=== PATIENT | female | born 1955 | race Caucasian/White ===

== ENCOUNTER 2022-01-19 10:04 | Outpatient (CLI) | payer MEDICARE, OTHER | END 2022-01-19 10:05 | disposition home or self-care (01) | LOC: CSHMRI 10:04 | PROVIDERS: ATTEND Podiatrist Foot & Ankle Surgery | DX: M76.71 Peroneal tendinitis, right leg (principal); M84.474K Pathological fracture, right foot, subsequent encounter for fracture with nonunion; M19.071 Primary osteoarthritis, right ankle and foot; M79.4 Hypertrophy of (infrapatellar) fat pad ==

== ENCOUNTER → 2025-01-15 | Outpatient (CLI) | payer MEDICARE, OTHER | LOC: CSHWCC 09:00 | PROVIDERS: ATTEND Nurse Practitioner Family | DX: I87.331 Chronic venous hypertension (idiopathic) with ulcer and inflammation of right lower extremity (principal); L97.511 Non-pressure chronic ulcer of other part of right foot limited to breakdown of skin; T81.31XA Disruption of external operation (surgical) wound, not elsewhere classified, initial encounter; M06.9 Rheumatoid arthritis, unspecified; L08.9 Local infection of the skin and subcutaneous tissue, unspecified | CPT/HCPCS: 11042; 97605; G0463; 99213 ==

== ENCOUNTER 2025-01-24 09:15 | Outpatient (CLI) | payer MEDICARE, OTHER | END 2025-01-24 09:16 | disposition home or self-care (01) | LOC: CSHWCC 09:15 | PROVIDERS: ATTEND Nurse Practitioner Family | DX: T81.31XD Disruption of external operation (surgical) wound, not elsewhere classified, subsequent encounter (principal); I87.331 Chronic venous hypertension (idiopathic) with ulcer and inflammation of right lower extremity; L97.511 Non-pressure chronic ulcer of other part of right foot limited to breakdown of skin; M06.9 Rheumatoid arthritis, unspecified; L08.9 Local infection of the skin and subcutaneous tissue, unspecified | CPT/HCPCS: 97607 ==

== ENCOUNTER 2025-01-29 08:54 | Outpatient (CLI) | payer MEDICARE, OTHER | END 2025-01-29 08:55 | disposition home or self-care (01) | LOC: CSHWCC 08:54 | PROVIDERS: ATTEND Nurse Practitioner Family | DX: T81.31XD Disruption of external operation (surgical) wound, not elsewhere classified, subsequent encounter (principal); I87.331 Chronic venous hypertension (idiopathic) with ulcer and inflammation of right lower extremity; L97.511 Non-pressure chronic ulcer of other part of right foot limited to breakdown of skin; L08.9 Local infection of the skin and subcutaneous tissue, unspecified; M06.9 Rheumatoid arthritis, unspecified | CPT/HCPCS: 11042; 97605 ==

== ENCOUNTER 2025-01-31 09:19 | Outpatient (CLI) | payer MEDICARE, OTHER | END 2025-01-31 09:20 | disposition home or self-care (01) | LOC: CSHWCC 09:19 | PROVIDERS: ATTEND Nurse Practitioner Family | DX: T81.31XD Disruption of external operation (surgical) wound, not elsewhere classified, subsequent encounter (principal); I87.331 Chronic venous hypertension (idiopathic) with ulcer and inflammation of right lower extremity; L97.511 Non-pressure chronic ulcer of other part of right foot limited to breakdown of skin; M06.9 Rheumatoid arthritis, unspecified; L08.9 Local infection of the skin and subcutaneous tissue, unspecified | CPT/HCPCS: 97605 ==

== ENCOUNTER 2025-02-03 12:45 | Outpatient (CLI) | payer MEDICARE, OTHER | END 2025-02-03 12:46 | disposition home or self-care (01) | LOC: CSHWCC 12:45 | PROVIDERS: ATTEND Nurse Practitioner Family | DX: T81.31XD Disruption of external operation (surgical) wound, not elsewhere classified, subsequent encounter (principal); I87.331 Chronic venous hypertension (idiopathic) with ulcer and inflammation of right lower extremity; L97.511 Non-pressure chronic ulcer of other part of right foot limited to breakdown of skin; M06.9 Rheumatoid arthritis, unspecified | CPT/HCPCS: 11042; 97605 ==

== ENCOUNTER 2025-02-10 09:03 | Outpatient (CLI) | payer MEDICARE, OTHER | END 2025-02-10 09:04 | disposition home or self-care (01) | LOC: CSHWCC 09:03 | PROVIDERS: ATTEND Nurse Practitioner Family | DX: T81.31XD Disruption of external operation (surgical) wound, not elsewhere classified, subsequent encounter (principal); I87.331 Chronic venous hypertension (idiopathic) with ulcer and inflammation of right lower extremity; L97.511 Non-pressure chronic ulcer of other part of right foot limited to breakdown of skin; M06.9 Rheumatoid arthritis, unspecified | CPT/HCPCS: 11042 ==

== ENCOUNTER 2025-02-18 11:32 | Outpatient (CLI) | payer MEDICARE, OTHER | END 2025-02-18 11:33 | disposition home or self-care (01) | LOC: CSHWCC 11:32 | PROVIDERS: ATTEND Nurse Practitioner Family | DX: T81.31XD Disruption of external operation (surgical) wound, not elsewhere classified, subsequent encounter (principal); I87.331 Chronic venous hypertension (idiopathic) with ulcer and inflammation of right lower extremity; L97.511 Non-pressure chronic ulcer of other part of right foot limited to breakdown of skin; M06.9 Rheumatoid arthritis, unspecified | CPT/HCPCS: 11042 ==

== ENCOUNTER 2025-02-25 12:31 | Outpatient (CLI) | payer MEDICARE, OTHER | END 2025-02-25 12:32 | disposition home or self-care (01) | LOC: CSHWCC 12:31 | PROVIDERS: ATTEND Nurse Practitioner Family | DX: T81.31XD Disruption of external operation (surgical) wound, not elsewhere classified, subsequent encounter (principal); I87.331 Chronic venous hypertension (idiopathic) with ulcer and inflammation of right lower extremity; L97.511 Non-pressure chronic ulcer of other part of right foot limited to breakdown of skin; M06.9 Rheumatoid arthritis, unspecified | CPT/HCPCS: 11042 ==

== ENCOUNTER 2025-03-10 13:38 | Outpatient (CLI) | payer MEDICARE, OTHER | END 2025-03-10 13:39 | disposition home or self-care (01) | LOC: CSHWCC 13:38 | PROVIDERS: ATTEND Nurse Practitioner Family | DX: T81.31XD Disruption of external operation (surgical) wound, not elsewhere classified, subsequent encounter (principal); I87.331 Chronic venous hypertension (idiopathic) with ulcer and inflammation of right lower extremity; L97.511 Non-pressure chronic ulcer of other part of right foot limited to breakdown of skin; M06.9 Rheumatoid arthritis, unspecified | CPT/HCPCS: 97597 ==

== ENCOUNTER 2025-03-24 14:35 | Outpatient (CLI) | payer MEDICARE, OTHER | END 2025-03-24 14:36 | disposition home or self-care (01) | LOC: CSHWCC 14:35 | PROVIDERS: ATTEND Nurse Practitioner Family | DX: T81.31XD Disruption of external operation (surgical) wound, not elsewhere classified, subsequent encounter (principal); I87.331 Chronic venous hypertension (idiopathic) with ulcer and inflammation of right lower extremity; L97.511 Non-pressure chronic ulcer of other part of right foot limited to breakdown of skin; M06.9 Rheumatoid arthritis, unspecified | CPT/HCPCS: 99212; G0463 ==

== ENCOUNTER 2025-04-07 14:46 | Outpatient (CLI) | payer MEDICARE, OTHER | END 2025-04-07 14:47 | disposition home or self-care (01) | LOC: CSHWCC 14:46 | PROVIDERS: ATTEND Nurse Practitioner Family | DX: I87.331 Chronic venous hypertension (idiopathic) with ulcer and inflammation of right lower extremity (principal); L97.511 Non-pressure chronic ulcer of other part of right foot limited to breakdown of skin; T81.31XD Disruption of external operation (surgical) wound, not elsewhere classified, subsequent encounter; M06.9 Rheumatoid arthritis, unspecified | CPT/HCPCS: 11042; G0463; 99213 ==

== ENCOUNTER 2025-04-14 14:30 | Outpatient (CLI) | payer MEDICARE, OTHER | END 2025-04-14 14:31 | disposition home or self-care (01) | LOC: CSHWCC 14:30 | PROVIDERS: ATTEND Nurse Practitioner Family | DX: T81.31XD Disruption of external operation (surgical) wound, not elsewhere classified, subsequent encounter (principal); I87.331 Chronic venous hypertension (idiopathic) with ulcer and inflammation of right lower extremity; L97.511 Non-pressure chronic ulcer of other part of right foot limited to breakdown of skin; M06.9 Rheumatoid arthritis, unspecified | CPT/HCPCS: 97597 ==

== ENCOUNTER 2025-05-12 14:17 | Outpatient (CLI) | payer MEDICARE, OTHER | END 2025-05-12 14:18 | disposition home or self-care (01) | LOC: CSHWCC 14:17 | PROVIDERS: ATTEND Nurse Practitioner Family | DX: T81.31XD Disruption of external operation (surgical) wound, not elsewhere classified, subsequent encounter (principal); I87.331 Chronic venous hypertension (idiopathic) with ulcer and inflammation of right lower extremity; L97.511 Non-pressure chronic ulcer of other part of right foot limited to breakdown of skin; M06.9 Rheumatoid arthritis, unspecified | CPT/HCPCS: 99213; G0463 ==

== ENCOUNTER 2025-05-26 14:28 | Outpatient (CLI) | payer MEDICARE, OTHER | END 2025-05-26 14:29 | disposition home or self-care (01) | LOC: CSHWCC 14:28 | PROVIDERS: ATTEND Nurse Practitioner Family | DX: T81.31XD Disruption of external operation (surgical) wound, not elsewhere classified, subsequent encounter (principal); I87.331 Chronic venous hypertension (idiopathic) with ulcer and inflammation of right lower extremity; L97.511 Non-pressure chronic ulcer of other part of right foot limited to breakdown of skin; M06.9 Rheumatoid arthritis, unspecified | CPT/HCPCS: 99213; G0463 ==

== ENCOUNTER 2025-06-23 14:52 | Outpatient (CLI) | payer MEDICARE, OTHER | END 2025-06-23 14:53 | disposition home or self-care (01) | LOC: CSHWCC 14:52 | PROVIDERS: ATTEND Nurse Practitioner Family | DX: T81.31XD Disruption of external operation (surgical) wound, not elsewhere classified, subsequent encounter (principal); I87.331 Chronic venous hypertension (idiopathic) with ulcer and inflammation of right lower extremity; L97.511 Non-pressure chronic ulcer of other part of right foot limited to breakdown of skin; M06.9 Rheumatoid arthritis, unspecified | CPT/HCPCS: 99213; G0463 ==